=== PATIENT | female | born 1995 | race Caucasian/White ===

== ENCOUNTER 2017-11-27 08:13 | Emergency (ER) | payer OTHER ==
[2017-11-27] MEDS: DEXAMETHASONE 4 MG TAB PO (09:25)
[2017-11-27] MEDS: DEXAMETHASONE 2 MG TAB PO (09:25)
[2017-11-27] MEDS: LORATADINE 10 MG TAB PO (09:25)
[2017-11-27] MEDS ORDERED: DIPHENHYDRAMINE 50 MG CAP PO (09:30)
== END 2017-11-27 09:36 | disposition home or self-care (01) ==
LOC: FTE 08:13
DX: R21 Rash and other nonspecific skin eruption (principal); I10 Essential (primary) hypertension; J45.909 Unspecified asthma, uncomplicated
CPT/HCPCS: 99283; Z7502